=== PATIENT | male | born 1960 | race Caucasian/White ===

== ENCOUNTER → 2022-02-07 | Outpatient (CLI) | payer MEDICARE ==
[~2022-02-07] MED LIST: CYCL10 PO; HYDACE10B PO; NAPR500 PO; TRAM50 PO; VALD20 PO
== END | disposition home or self-care (01) ==
LOC: LAB SHORT 14:32
DX: J02.9 Acute pharyngitis, unspecified (principal)
CPT/HCPCS: 87081

== ENCOUNTER 2023-06-25 09:39 | Emergency (ER) | payer MEDICARE ==
[~2023-06-25] VITALS: Ht 177.8 cm; Wt 80.0 kg
[~2023-06-25 09:39] MED LIST changes: +Rocuronium Bromide 10 MG/ML 5ML Injection IV ONE
[2023-06-25] MEDS ORDERED: Sodium Chloride 3% 250 ML IV ONE (09:45)
[2023-06-25] MEDS ORDERED: propofoL 100 ML IV SCH (09:55)
[2023-06-25] MEDS ORDERED: FentaNYL Citrate 50 MCG/ML 2 ML Injection IV ONE (09:55)
[2023-06-25] MEDS ORDERED: CeFAZolin Sodium 2,000 MG in NS 100 ML IV ONE (09:55)
[2023-06-25] MEDS ORDERED: Diphth,Pertuss(Acell),Tet Vac 0.5 ML VIAL IM ONE (09:55)
[2023-06-25 10:04] LABS: Hematocrit 42.1 % (37.0-53.0); Hemoglobin 14.7 g/dL (13.5-17.5); Mean Corpuscular HGB 31.3 pg (26.0-34.0); Mean Corpuscular HGB Conc 34.9 g/dL (31.5-36.5); Mean Corpuscular Volume 90 fL (80-100); Mean Platelet Volume 9.3 fL (9.1-12.4); Platelet Count 314 K/mm3 (150-400); RDW Coefficient Variation 13.6 % (11.7-14.2); RDW Standard Deviation 44.8 fL (35.1-46.3); White Blood Cell Count 21.26 K/mm3 (4.00-11.30)
[2023-06-25] MEDS ORDERED: levETIRAcetam 1,000 MG in NS 100 ML IV ONE (10:10)
[2023-06-25 10:19] LABS: Bun/Creatinine Ratio 9.1 (12.0-20.0); Calcium, Blood 8.7 mg/dL (8.5-10.1); Creatinine, Blood 0.88 mg/dL (0.60-1.20); Potassium, Blood 3.3 mmol/L (3.5-5.5)
[2023-06-25 10:20] LABS: International Normalized Ratio 0.96; Prothrombin Time Results 10.3 Sec (9.7-11.5)
[2023-06-25 10:28] VITALS: BP 147/76
[2023-06-25 10:58] LABS: BAND PERCENT MAN 1 % (0-8); BASOPHILS PERCENT MAN 0 % (0-2); EOSINOPHILS PERCENT MAN 0 % (0-6); LYMPHOCYTES % ATYPICAL MANUAL 1 % (0-0); LYMPHOCYTES PERCENT MAN 31 % (21-46); MONOCYTES ABSOLUTE MAN 0.63 K/mm3 (0.16-1.47); MONOCYTES PERCENT MAN 3 % (4-13); NEUTROPHILS ABSOLUTE MAN 13.81 K/mm3 (1.96-9.15); SEG NEUTROPHILS PERCENT MAN 64 % (41-73); TOTAL CELLS COUNTED 100
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
[2023-06-25] MEDS ORDERED: Rocuronium Bromide 10 MG/ML 5ML Injection IV STA (11:38)
== END 2023-06-25 10:57 | disposition short-term general hospital (02) ==
LOC: ER 09:39
PROVIDERS: Student in an Organized Health Care Education/Training Program
DX: S06.6XAA Traumatic subarachnoid hemorrhage with loss of consciousness status unknown, initial encounter (principal); S06.36AA Traumatic hemorrhage of cerebrum, unspecified, with loss of consciousness status unknown, initial encounter; S06.5XAA Traumatic subdural hemorrhage with loss of consciousness status unknown, initial encounter; S02.0XXA Fracture of vault of skull, initial encounter for closed fracture; S02.19XA Other fracture of base of skull, initial encounter for closed fracture; S02.85XA Fracture of orbit, unspecified, initial encounter for closed fracture; I10 Essential (primary) hypertension; F17.210 Nicotine dependence, cigarettes, uncomplicated; W34.00XA Accidental discharge from unspecified firearms or gun, initial encounter
CPT/HCPCS: 31500; 51702; 70450; 71045; 72125; 80048; 85025; 85610; 85730; 86850; 86900; 86901; 90471; 90715; 94002; 96365-59; 96375-59; 99291-25; G0390; J0690; J1953; J2704; J3010; J7060